=== PATIENT | female | born 1990 | race African-American/Black ===

== ENCOUNTER 2024-02-06 07:16 | Emergency (ER) | payer SELFPAY ==
[2024-02-06] MEDS ORDERED: Ibuprofen 800 MG TAB ONE (07:39)
== END 2024-02-06 07:50 | disposition home or self-care (01) ==
LOC: ERS 07:16
DX: K08.89 Other specified disorders of teeth and supporting structures (principal); F17.210 Nicotine dependence, cigarettes, uncomplicated; Z55.6 Problems related to health literacy
CPT/HCPCS: 99282

== ENCOUNTER 2024-09-02 05:13 | Emergency (ER) | payer SELFPAY ==
[2024-09-02] MEDS ORDERED: Acetaminophen 500 MG TAB ONE (06:24)
[2024-09-02] MEDS ORDERED: Ibuprofen 800 MG TAB ONE (06:24)
[2024-09-02] MEDS ORDERED: Bacitracin 1 PK ONE (06:50)
== END 2024-09-02 07:08 | disposition home or self-care (01) ==
LOC: ERS 05:13
DX: S81.851A Open bite, right lower leg, initial encounter (principal); F17.210 Nicotine dependence, cigarettes, uncomplicated; W54.0XXA Bitten by dog, initial encounter; Y93.89 Activity, other specified; Y92.89 Other specified places as the place of occurrence of the external cause
CPT/HCPCS: 99283